=== PATIENT | female | born 1985 | race Caucasian/White ===

== ENCOUNTER 2019-08-05 21:53 | Emergency (ER) | payer OTHER ==
[~2019-08-05] VITALS: Ht 175.3 cm; Wt 102.5 kg
[2019-08-06] MEDS ORDERED: ALBUTEROL SULFATE 2.5 MG/3 ML NEBU NEB ONE (00:45)
[2019-08-06] MEDS ORDERED: predniSONE 20 MG TABLET PO ONE (00:45)
[2019-08-06] MEDS ORDERED: IPRATROPIUM BROMIDE 0.5 MG/2.5 ML NEBU NEB ONE (00:45)
[2019-08-06] MEDS ORDERED: IPRATROPIUM BROMIDE 0.5 MG/2.5 ML NEBU ONE (00:49)
[2019-08-06] MEDS ORDERED: ALBUTEROL SULFATE 2.5 MG/3 ML NEBU ONE (00:49)
--- NOTE | 2019-08-06 00:50 | NUR ---
PT ABLE TO TOLERATE BREATHING TREATMENT PT STATES SHE FEELS BETTER AFTERWARDS
[2019-08-06] MEDS ORDERED: predniSONE 10 MG TABLET ONE (00:54)
[2019-08-06] MEDS ORDERED: predniSONE 50 MG TABLET ONE (00:54)
[2019-08-06 01:12] LABS: BASOPHILS # (AUTO) 0.2 K/uL (0.0-8.0); BASOPHILS % (AUTO) 1.4 % (0.0-2.0); EOSINOPHILS # (AUTO) 0.2 K/uL (0.0-0.7); EOSINOPHILS % (AUTO) 1.7 % (0.0-7.0); HEMATOCRIT 37.7 % (31.2-41.9); HEMOGLOBIN 12.9 g/dL (10.9-14.3); LYMPHOCYTES # (AUTO) 2.8 K/uL (20.0-40.0); LYMPHOCYTES % (AUTO) 25.2 % (20.5-51.5); MEAN CORPUSCULAR HEMOGLOBIN 28.8 uug (24.7-32.8); MEAN CORPUSCULAR HGB CONC 34 g/dL (32.3-35.6); MEAN CORPUSCULAR VOLUME 84.2 fL (75.5-95.3); MONOCYTES # (AUTO) 0.8 K/uL (2.0-10.0); MONOCYTES % (AUTO) 7.5 % (0.0-11.0); NEUTROPHILS # (AUTO) 7.2 K/uL (1.8-8.9); NEUTROPHILS % (AUTO) 64.2 % (38.5-71.5); PLATELET COUNT (AUTO) 122 K/uL (179-408); RED BLOOD CELL COUNT(AUTO) 4.48 MIL/uL (3.63-4.92); WHITE BLOOD COUNT (AUTO) 11.2 K/uL (3.8-11.8)
[2019-08-06 01:18] LABS: *URINE HCG, QUAL NEGATIVE (NEGATIVE)
[2019-08-06 01:36] LABS: CREATININE 0.9 mg/dL (0.6-1.3); POTASSIUM 3.5 mmol/L (3.5-5.1)
[2019-08-06] MEDS ORDERED: OSELTAMIVIR PHOSPHATE 75 MG CAPSULE PO ONE (01:45)
[2019-08-06] MEDS ORDERED: OSELTAMIVIR PHOSPHATE 75 MG CAPSULE ONE (01:52)
[2019-08-06] MEDS ORDERED: BENZONATATE 100 MG CAPSULE ONE (01:52)
[2019-08-06] MEDS ORDERED: BENZONATATE 100 MG CAPSULE PO ONE (02:00)
--- NOTE | 2019-08-06 03:01 | NUR ---
Patient discharged to home in stable conditon. Written and verbal after care instructions given. Patient verbalizes understanding of instructions. AMBULATORY W/ STABLE GAIT ALL BELONGINGS W/ PT
[2019-08-06 03:04] VITALS: BP 115/79
== END 2019-08-06 03:05 | disposition home or self-care (01) ==
LOC: ER 21:53
DX: J11.1 Influenza due to unidentified influenza virus with other respiratory manifestations (principal); J45.901 Unspecified asthma with (acute) exacerbation; D69.6 Thrombocytopenia, unspecified; F10.10 Alcohol abuse, uncomplicated; Z88.1 Allergy status to other antibiotic agents; Z79.899 Other long term (current) drug therapy
CPT/HCPCS: 36415; 71046; 80048; 83880; 84484; 84703; 85025; 87400; 93005; 94640; 99285; J7512 ×2; 70030-TC; A4663; J3590

== ENCOUNTER 2021-02-21 22:19 | Emergency (ER) | payer OTHER ==
[~2021-02-21] VITALS: Ht 172.7 cm; Wt 98.9 kg
[~2021-02-21 22:19] MED LIST: ALBU18HF2 IH
--- NOTE | 2021-02-21 22:33 | NUR ---
Dr. Hester at bedside for mse.
--- NOTE | 2021-02-21 22:45 | NUR ---
Pt here because she has cough/sob, she says she inhaled animal hair after she used her inhaler which had animal hair in it.
[2021-02-21] MEDS ORDERED: ALBUTEROL SULFATE 2.5 MG/3 ML NEBU NEB ONE (23:00)
[2021-02-21] MEDS ORDERED: ALBUTEROL SULFATE 2.5 MG/3 ML NEBU ONE (23:13)
--- NOTE | 2021-02-21 23:58 | NUR ---
Pt currently recieving breating treatment.
--- NOTE | 2021-02-22 00:36 | NUR ---
Patient discharged to home in stable condition. Written and verbal after care instructions given. Patient verbalizes understanding of instructions. Stressed follow up or return to ER for worsening s/s. No signs of distress, pt. states she feels better. Pt. is not coughing anymore, has no more sob. All belongings taken. Walks with steady gait.
[2021-02-22 00:37] VITALS: BP 112/62
== END 2021-02-22 00:40 | disposition home or self-care (01) ==
LOC: ER 22:21
DX: T17.990A Other foreign object in respiratory tract, part unspecified in causing asphyxiation, initial encounter (principal); X58.XXXA Exposure to other specified factors, initial encounter; Y92.89 Other specified places as the place of occurrence of the external cause; J45.909 Unspecified asthma, uncomplicated; Z90.49 Acquired absence of other specified parts of digestive tract; Z86.16 Personal history of COVID-19; R03.0 Elevated blood-pressure reading, without diagnosis of hypertension